=== PATIENT | male | born 1970 | race Caucasian/White ===

== ENCOUNTER 2022-10-31 09:04 | Outpatient (CLI) | payer OTHER, SELFPAY ==
[2022-10-31 09:52] VITALS: PULSE 78; RESP 18; O2SAT 98
[2022-10-31 09:57] VITALS: PULSE 82
[2022-10-31] MEDS: albuterol 2.5 mg/3 mL Neb INHALATION (09:57)
== END 2022-10-31 09:05 | disposition home or self-care (01) ==
PROVIDERS: Visit Provider Dermatology
DX: R06.00 Dyspnea, unspecified (principal)
CPT/HCPCS: 94060; J7613